=== PATIENT | male | born 1980 | race Caucasian/White ===

== ENCOUNTER 2018-08-04 14:03 | Emergency (ER) | payer BC ==
[2018-08-04 14:45] LABS: Bilirubin Negative (Negative); Blood, Urine Trace (Negative); Clarity TURBID (Clear); Glucose, Urine (Dipstick) Negative (Negative); Leukocyte Negative (Negative); Nitrite Negative (Negative); Protein, Urine (Dipstick) 100 mg/dL (Neg-Trace); Specific Gravity, Urine 1.022 (1.002-1.036); Urobilinogen 0.2 mg/dL (0.2-1.0)
[2018-08-04 14:48] LABS: Bacteria/HPF None Seen HPF (None Seen); Hyaline Casts/LPF 0-3 HYALINE CAST LPF (0-3 Hyaline); Pathc Cast-AUWi Flag 0.29 (0-2.49); Squamous Epithelial 0-3 HPF (0-3); WBC/HPF 0-3 HPF (0-3)
[2018-08-04] MEDS ORDERED: Acetaminophen 500 MG TAB ONE (14:53)
[2018-08-04 15:05] LABS: Mean Corpuscular HGB CONC 34.4 g/dL (32.0-36.0); Mean Corpuscular Hemoglobin 31.2 pg (27.0-31.0); Mean Corpuscular Volume 90.7 fL (78.0-98.0); Mean Platelet Volume 8.3 fL (7.4-10.4); Platelet Count 177 thou/uL (130-400); RBC Distribution Width 11.8 % (11.5-14.5); Red Blood Cell (RBC) Count 5.11 mill/uL (4.70-6.10); White Blood Cell (WBC) Count 12.1 thou/uL (4.8-10.8)
[2018-08-04 15:20] LABS: Band 25 % (5-11); Lymphocytes 5 % (21-51); MDiff Complete? YES; Monocytes 5 % (0-10); Neutrophil 65 % (42-75); PLT Morphology Comment Appears Adequate; RBC Morphology Normal
--- NOTE | 2018-08-04 16:04 | RAD ---
PORTABLE CHEST: 08/04/18 HISTORY: Cough, fever, headache, bodyaches x3 days. Heart size and mediastinum are within normal limits. The lungs appear clear of any infiltrative proce ss. No significant bony findings. IMPRESSION: No active intrathoracic disease. POS: [facility]
== END 2018-08-04 16:41 | disposition home or self-care (01) ==
LOC: ERS 14:03
DX: E86.0 Dehydration (principal); R50.9 Fever, unspecified; R19.7 Diarrhea, unspecified
CPT/HCPCS: 36415; 71045; 81003; 81015; 83605; 85025; 87040; 87086; 87804; 93005; 96360; 96361

== ENCOUNTER 2019-07-08 10:27 | Emergency (ER) | payer BC ==
[~2019-07-08 10:27] MED LIST: Iopamidol 370 76% 100 ML VIAL ONE
[2019-07-08] MEDS ORDERED: Aspirin Chewable 81 MG TAB ONE (10:48)
[2019-07-08] MEDS ORDERED: Nitroglycerin 0.4 MG TAB (25 Tab Bottle) ONE (10:48)
[2019-07-08 10:55] LABS: #Basophils 0.1 thou/uL (0.0-0.2); #Eosinphils 0.1 thou/uL (0.0-0.7); #Monocytes 0.7 thou/uL (0.11-0.59); #Neutrophils 3.4 thou/uL (1.40-6.50); %Basophils 1.3 % (0.0-1.0); %Eosinophils 1.4 % (0.0-10.0); %Lymphocytes 32.1 % (21.0-51.0); %Monocytes 10.7 % (0.0-10.0); %Neutrophils 54.5 % (42.0-75.0); Hemoglobin 15.3 g/dL (14.0-18.0); Mean Corpuscular Hemoglobin 30.1 pg (27.0-31.0); Mean Corpuscular Volume 88.5 fL (78.0-98.0); Mean Platelet Volume 8.9 fL (7.4-10.4); Platelet Count 199 thou/uL (130-400); RBC Distribution Width 11.6 % (11.5-14.5); Red Blood Cell (RBC) Count 5.07 mill/uL (4.70-6.10); White Blood Cell (WBC) Count 6.3 thou/uL (4.8-10.8)
[2019-07-08 11:05] LABS: ALT (SGPT) 26 U/L (8-55); AST (SGOT) 18 U/L (5-34); Alkaline Phosphatase 59 U/L (40-110); Anion Gap 14 mmol/L (10-20); BUN (Urea Nitrogen) 15 mg/dL (8.9-20.6); Bilirubin, Total 0.5 mg/dL (0.2-1.2); Calc. Creatinine Clearance 0 mL/min (70-130); Carbon Dioxide 24 mmol/L (22-29); Chloride 106 mmol/L (98-107); Estimated GFR-MDRD Greater than 90; Glucose 124 mg/dL (70-105); Sodium 140 mmol/L (136-145)
[2019-07-08 11:22] LABS: CKMB 1.4 ng/mL (0-6.6)
[2019-07-08] MEDS ORDERED: Azithromycin 500 MG VIAL ONE (11:44)
[2019-07-08] MEDS ORDERED: cefTRIAXone\\ROCEPHIN 1 GM VIAL ONE (11:44)
[2019-07-08] MEDS ORDERED: Sodium Chloride 0.9% 200 ML ONE (11:45)
--- NOTE | 2019-07-08 13:09 | CT ---
CT PULMONARY ANGIOGRAM WITH IV CONTRAST AND 3D POSTPROCESSING: Date: 07/08/19 HISTORY: Shortness of breath, chest pain, and dizziness. FINDINGS: There is good contrast opacification of the pulmonary arterial vasculature without filling defects to suggest pulmonary embolism. The thoracic aorta is well opacified without aneurysm or dissection. There is an enlarged right hilar lymph node measuring about 1.5 cm. No pleural or pericardial effusio ns are seen. No pneumothoraces are identified. There are mild patchy infiltrates in the right lower l obe. Degenerative changes are present in the spine. IMPRESSION: 1. No CT evidence of pulmonary embolism. 2. Enlarged right hilar lymph node. 3. Mild infiltrates in the right lower lobe, suspicious for pneumonia. POS: OFF
== END 2019-07-08 13:18 | disposition short-term general hospital (02) ==
LOC: SCSER 10:27
DX: R07.9 Chest pain, unspecified (principal); R91.8 Other nonspecific abnormal finding of lung field; R79.89 Other specified abnormal findings of blood chemistry
CPT/HCPCS: 71275; 80053; 82553; 83880; 84484; 85025; 93005; 96365; 96367; J0456; J0696; J3490; Q9967